=== PATIENT | male | born 1940 | race Caucasian/White ===

== ENCOUNTER 2019-09-23 19:58 | Inpatient (IN) ==
[2019-09-23] MEDS ORDERED: NS 1,000 ML IV ONE ×2 (20:16→22:09)
[2019-09-23] MEDS ORDERED: ZOFRAN IV ONE (20:16)
[2019-09-23] MEDS ORDERED: MORPHINE IV ONE (20:16)
[2019-09-23 20:36] LABS: BASO# 0.02 X1000 (0.0-0.2); BASO% 0.2 % (0.0-0.8); EOS# 0.06 X1000 (0.0-0.7); EOS% 0.5 % (0.0-10.0); HEMOGLOBIN 15.9 g/dL (14.0-18.0); IMM GRAN# 0.06 X1000 (0.0-0.04); IMM GRAN% 0.5 % (0.0-0.5); LYMPH# 1.07 X1000 (1.2-3.4); LYMPH% 8.2 % (20.5-51.1); MCH 27.2 PG (27-31); MCHC 33.8 g/dL (33-37); MCV 80.5 FL (81-99); MONO# 0.84 X1000 (0.11-0.59); MONO% 6.4 % (1.7-9.3); MPV 10.1 FL (7.4-10.4); NEUT# 11.07 X1000 (1.4-6.5); NEUT% 84.2 % (42.2-75.2); PLT 226 X1000 (130-400); RBC 5.84 XMIL (4.7-6.1); RDW 14.9 % (11.5-14.5); WBC 13.12 X1000 (4.8-10.8)
[2019-09-23 21:01] LABS: ALBUMIN 4.4 g/dL (3.5-5.0); ALKALINE PHOSPHATASE 72 U/L (32-122); CHLORIDE 97 mmol/L (98-107); CREATININE 1.1 mg/dL (0.7-1.2); ESTIMATED GFR > 60; GOT 23 U/L (10-34); GPT 22 U/L (10-44); POTASSIUM 3.5 mmol/L (3.5-5.1); SODIUM 139 mmol/L (136-145)
[2019-09-23] MEDS ORDERED: DILAUDID IV ONE (21:12)
[2019-09-23 21:22] LABS: AMYLASE 4709 U/L (20-200); BUN 15 mg/dL (8-22); CALCIUM 9.2 mg/dL (8.8-10.2); GLUCOSE 134 mg/dL (70-104); LIPASE > 3000 U/L (13-60); TCO2 27 mmol/L (25-35); TOTAL BILIRUBIN 1.53 mg/dL (0.20-1.00); TOTAL PROTEIN 7.4 g/dL (6.3-8.3)
[2019-09-23 21:30] LABS: AGAP 16
[2019-09-23 21:34] LABS: ALB/GLOB RATIO 1.5
[2019-09-23 21:36] LABS: COSMO 280
--- NOTE | 2019-09-23 22:11 | Diag Imaging Result Doc PS360 ---
CT ABD/PELVIS W/IV CONT ONLY - 09/23/2019 INDICATION: abdominal tenderness COMPARISON: None FINDINGS: The lung bases are clear and the heart size is normal. There is moderate inflammatory edema around the pancreas. The liver, gallbladder, spleen, adrenals, and kidneys are normal. No biliary dilation. No drainable fluid collections. There is severe diverticulosis of the distal colon. No bowel obstruction or inflammation. Urinary bladder, prostate, and rectum are normal. Normal appendix. There is a right hip prosthesis in good position. 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 There is moderately advanced vascular disease. There are moderate degenerative changes of the spine. No acute or suspicious bony lesion. There is severe central canal stenosis at L3-L4. IMPRESSION: Significant acute pancreatitis. No complication. This exam was performed using automated exposure control, adjustment of mA or kV according to patient size, and/or use of iterative reconstruction technique Electronically signed by Cosmo Garcia 09/23/2019 10:09 PM
[2019-09-23 22:34] LABS: URINE SOURCE CLEAN CATCH
[2019-09-23 22:40] LABS: BILIRUBIN URINE NEGATIVE (NEGATIVE); BLOOD URINE TRACE (NEGATIVE); COLOR YELLOW; GLUCOSE URINE NEGATIVE (NEGATIVE); KETONE URINE TRACE mg/dL (NEGATIVE); LEUKOCYTES URINE NEGATIVE (NEGATIVE); NITRITE URINE NEGATIVE (NEGATIVE); PH URINE 7.5; PROTEIN URINE TRACE mg/dL (NEGATIVE); SP GRAVITY URINE 1.033; TURBIDITY URINE CLEAR (CLEAR); UROBILINOGEN URINE NORMAL (NORMAL)
[2019-09-23 22:41] LABS: UR EPITHELIAL CELLS <10 /HPF (<10); URINE BACTERIA NEGATIVE /HPF; URINE RBC <10 /HPF (<10); URINE WBC <10 /HPF (<10)
--- NOTE | 2019-09-23 22:44 | PROVIDER DOCUMENTATION ---
This chart was entered by Brook Anaya Scribe, acting as scribe for Lalo Ulloa MD. HPI-Abdominal Pain/GI Problem - General Chief Complaint: Abdominal Pain Stated Complaint: PAIN IN ABDOMEN Time Seen by Provider: 09/23/19 20:15 Source: patient Allergies/Adverse Reactions: Patient Allergies Allergy/AdvReac Type Severity Reaction Status Date / Time No Known Allergies Allergy Verified 09/23/19 20:26 Home Medications: Home Medication List Medication Instructions Recorded Confirmed Last Taken Type Apixaban [Eliquis] 5 mg PO BID 09/23/19 09/23/19 Unknown History Diclofenac Sodium 1 appful TOP TID 09/23/19 09/23/19 Unknown History Losartan/Hctz [Hyzaar 100/12.5 mg 1 tab PO DAILY 09/23/19 09/23/19 Unknown History Tab] Omeprazole [Prilosec] 20 mg PO DAILY 09/23/19 09/23/19 Unknown History Potassium Chloride 20 meq PO DAILY 09/23/19 09/23/19 Unknown History Pravastatin Sodium 40 mg PO DAILY 09/23/19 09/23/19 Unknown History - History of Present Illness-ABD Nature of Presenting Problems: PT IS A 79 YOWM C/O EPIGASTRIC PAIN STARTING AT 1500. 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 PAIN IS 10/10. PT TOOK MARIA DEL CARMEN SELTZER, TUMS AND 300MG Ranitidine. PT HAS HX OF AFIB, TAKES ELAQUIS 2X DAILY. PT HAS GALL BLADDER. PT HAD ELIS SAUSAGE ON BREAD W/SWEET POTATO PIE FOR LUNCH AND CRACKERS. NO CONSTIPATION OR DIARRHEA. PT HAD NORM BM THIS AM. Abdominal Pain Onset Location: reports: epigastric Pain Radiation: reports: no radiation Severity in ED: reports: mild Onset/Duration: reports: this afternoon Timing: reports: still present Activities at Onset: reports: none Modifying Factors: improves with: nothing Associated Symptoms: reports: denies symptoms Last BM: this morning Dark Stools Present?: reports: none noticed Rectal Bleeding: reports: none Rectal Pain: reports: none Review of Systems - Adult - REVIEW OF SYSTEMS - ADULT Constitutional: reports: no symptoms reported. denies: chills, fever, fatique Eyes: reports: no symptoms reported Ears, Nose, Mouth & Throat: reports: no symptoms reported Cardiovascular: reports: no symptoms reported Respiratory: reports: no symptoms reported Gastrointestinal: reports: see HPI, abdominal pain (epigastric), vomiting (X1). denies: constipation, diarrhea, nausea Genitourinary: reports: no symptoms reported Musculoskeletal: reports: no symptoms reported Integumentary: reports: no symptoms reported Neurological: reports: no symptoms reported Psychiatric: reports: no symptoms reported Endocrine: reports: no symptoms reported Hematologic/Lymphatic: reports: no symptoms reported Allergic/Immunologic: reports: no symptoms reported All Other Systems: Reviewed and Negative Past History - Adult - PAST MEDICAL HISTORY-ADULT Review of Records: reports: Nursing Assessment Review, Medications Reviewed, Social history reviewed & non-contributory. Major Childhood Illnesses: reports: denies history Cardiovascular: reports: A-Fib Respiratory: reports: denies history Gastrointestinal: reports: denies history Obstetrical/Gynecological: reports: denies history Genitourinary: reports: denies history Musculoskeletal: reports: denies history Neurological: reports: denies history Endocrine/Immune: reports: denies history Other Conditions: reports: denies history - IMMUNIZATION STATUS Childhood Immunizations: See Nurse Assessment Flu Vaccine: See Nurse Assessment - FAMILY HISTORY Family History: reviewed, not pertinent - SOCIAL HISTORY Smoking: non-smoker Substance Use: none/never Physical Exam-General - PHYSICAL EXAM-ADULT Initial Vital Signs Reviewed: Yes - CONSTITUTIONAL General Appearance: alert, no apparent distress. negative: lethargic, slow to respond, obtunded - EYES Eyes: PERRL/EOMI, pink conjunctivae - HEAD, EARS, NOSE, MOUTH & THROAT HENMT: normocephalic/atraumatic, normal ENT inspection. negative: moist mucous membranes (dry mucous membranes) - NECK Neck: non-tender, full range of motion, supple, normal inspection - RESPIRATORY Respiratory: chest non-tender, lungs clear, normal breath sounds - CARDIOVASCULAR Cardiovascular: normal peripheral pulses, regular rate, rhythm - GASTROINTESTINAL (ABDOMEN) Abdominal Exam: normal bowel sounds, soft, no organomegaly, no pulsatile mass, tenderness (epigastric on palp). negative: non tender, abnormal bowel sounds, guarding, rigid - MUSCULOSKELETAL Back Exam: normal inspection Extremity: normal range of motion, non-tender, normal gait, normal inspection Peripheral Pulses: radial (R): 2+, radial (L): 2+ - SKIN Integumentary: normal color, normal turgor, warm/dry - NEUROLOGIC Neurologic: grossly normal, no motor/sensory deficits - PSYCHIATRIC Psych/Mental Status: normal mood/affect, normal thought content, normal thought process, oriented x 3 Progress - PLAN OF CARE/RESULTS Progress/Plan/Lab Results: Vital Signs - 8 hr 09/23/19 20:08 Temperature 98.4 F Pulse Rate 75 Respiratory Rate 20 Blood Pressure 156/92 O2 Sat by Pulse Oximetry 97 Result Diagrams: 09/23/19 20:20 09/23/19 20:20 - REASSESSMENT Reassessment #1 Time Reassessed: 22:00 Status: improving (Pain well controlled. Pt has acute pancreatitis. NPO, IVF's and admit.) - CT/MRI 1 CT Study: Abdomen, Pelvis Impression: Abnormal, See EMR Report (CT ABD/PELVIS W/IV CONT ONLY - 09/23/2019 INDICATION: abdominal tenderness COMPARISON: None FINDINGS: The lung bases are clear and the heart size is normal. There is moderate inflammatory edema around the pancreas. The liver, gallbladder, spleen, adrenals, and kidneys are normal. No biliary dilation. No drainable fluid collections. There is severe diverticulosis of the distal colon. No bowel obstruction or inflammation. Urinary bladder, prostate, and rectum are normal. Normal appendix. There is a right hip prosthesis in good position. 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 There is moderately advanced vascular disease. There are moderate degenerative changes of the spine. No acute or suspicious bony lesion. There is severe central canal stenosis at L3-L4. IMPRESSION: Significant acute pancreatitis. No complication. This exam was performed using automated exposure control, adjustment of mA or kV according to patient size, and/or use of iterative reconstruction technique Electronically signed by Cosmo Garcia 09/23/2019 10:09 PM) Comparison with other Films: no prior study - CONSULTS/PCP/HOSPITALIST Notification #1 *Consult/PCP/Hospitalist*: Dr. Pablo Time Discussed: 22:47 Consult Disposition: Admit Departure - Departure Date of Disposition Decision: 09/23/19 Time of Disposition Decision: 22:40 DIAGNOSIS: Acute pancreatitis Disposition: ADMITTED INPATIENT 09 Certified Medical Emergency: Emergent Condition: Stable Referrals and Follow-Ups: Eunice Morgan [Primary Care Provider] - - Critical Care Note This patient required my direct & personal management of CC.: No Attestation - Physician/ MELANIA Attestation Patient care was provided by Advanced Practice Provider:: No The physician spent face to face time with patient:: Yes Advanced Practice Provider documentation review:: Supervising physician onsite and consulted in the evaluation and care of this patient. The physician did have a face to face encounter with the patient. This chart was documented by the indicated scribe, (Brook Anaya Scribe) and accurately reflects the services I performed and decisions made by me, Lalo Ulloa MD, as attested by the provider's signature.
[2019-09-23] MEDS: PROTONIX IV SCH (23:08)
[2019-09-24] MEDS: DILAUDID IV PRN ×5 (02:11→22:22)
[2019-09-24] MEDS: ZOFRAN IV PRN ×6 (02:16→22:22)
[2019-09-24] MEDS ORDERED: DILAUDID IV ONE (05:21)
--- NOTE | 2019-09-24 05:56 | HISTORY AND PHYSICAL ---
CHIEF COMPLAINT: Abdominal pain which was noted prior to admission. HISTORY OF PRESENT ILLNESS: Mr. Asad Castellano is an 79-year-old male who has a history of hypertension, as well as atrial fibrillation. Comes to the hospital because of abdominal pain which is localized to the epigastric area and noticed prior to admission. He describes having vomiting, which was noted when he presented to the ER. No hematemesis. No diarrhea. The patient denies alcohol use. No history of gallbladder gallstones. On presenting to the ER, he had a CT scan of the abdomen and pelvis which shows evidence of significant acute pancreatitis. The patient's lipase level was elevated at greater than 3000 with amylase level of 4709. The patient has been admitted to the floor now for further management. PAST MEDICAL HISTORY: Atrial fibrillation, hypertension, carpal tunnel syndrome. SOCIAL HISTORY: No history of cigarette smoking. No alcohol or drug use. ALLERGIES: No known drug allergies. PAST SURGICAL HISTORY: He has had left knee surgery on 3 occasions, back surgery and right hip surgery. FAMILY HISTORY: Positive for CVA. MEDICATIONS INCLUDE THE FOLLOWIN. Apixaban 5 mg p.o. twice a day. 2. Diclofenac topical 3 times a day. 3. Losartan/hydrochlorothiazide 1 daily, 10-12.5. 4. Omeprazole 20 mg p.o. daily. 5. Potassium chloride 20 mEq p.o. daily. 6. Pravastatin 40 mg p.o. daily. REVIEW OF SYSTEMS: Constitutional: No fever. DEFENSE ANALYST: No headaches. Eyes: Uses glasses. Cardiovascular: Has no chest pain. Respiratory: No cough. : No dysuria. Psychiatric: No anxiety or depression. Endocrinology: No thyroid disease or diabetes. Hematology: Patient is on Eliquis for anticoagulation for atrial fibrillation. Musculoskeletal: He has joint pains. PHYSICAL EXAMINATION: VITAL SIGNS ARE FOLLOWS: Temperature 98.2 degrees, pulse 67, respirations 20, blood pressure is 185/64, oxygen saturation is 96%. HEENT: Atraumatic, normocephalic. He is anicteric. No oral lesions noted. NECK: No lymphadenopathy or thyromegaly. CARDIOVASCULAR: S1, S2. RESPIRATORY: Evidence of good air entry bilaterally. ABDOMEN: Soft, nontender. No masses felt. EXTREMITIES: No evidence of edema. CENTRAL NERVOUS SYSTEM: No obvious focal deficit noted. LABORATORY DATA: WBC is 13.13, hematocrit is 47 with a platelet count of 226,000. Sodium is 139, potassium 3.5, chloride 97, bicarb is 27, BUN is 15, creatinine is 1.1. Amylase 4709, lipase greater than 3000. CT scan abdomen and pelvis shows acute pancreatitis. ASSESSMENT AND PLAN: 1. Acute pancreatitis. Place patient on NPO. Maintain patient on intravenous fluids. Analgesic agent, antiemetics. Obtain abdominal ultrasound. Follow up on clinical progression. 2. Atrial fibrillation. Place patient on telemetry. Obtain serial cardiac enzymes. Check thyroid function test. Continue current regimen. 3. Hypertension. Optimize blood pressure control using oral as well as parenteral agent. 4. Deep vein thrombosis prophylaxis. The patient is on apixaban. 5. Gastrointestinal prophylaxis. Proton pump inhibitor. cc: Colton Parry MD
[2019-09-24 07:02] LABS: BASO# 0.01 X1000 (0.0-0.2); BASO% 0.1 % (0.0-0.8); EOS# 0.05 X1000 (0.0-0.7); EOS% 0.3 % (0.0-10.0); HEMATOCRIT 44.5 % (42.0-52.0); HEMOGLOBIN 14.9 g/dL (14.0-18.0); IMM GRAN# 0.05 X1000 (0.0-0.04); IMM GRAN% 0.3 % (0.0-0.5); LYMPH# 0.53 X1000 (1.2-3.4); LYMPH% 3.2 % (20.5-51.1); MCH 27.3 PG (27-31); MCHC 33.5 g/dL (33-37); MCV 81.7 FL (81-99); MONO# 0.74 X1000 (0.11-0.59); MONO% 4.4 % (1.7-9.3); MPV 10.3 FL (7.4-10.4); NEUT# 15.34 X1000 (1.4-6.5); NEUT% 91.7 % (42.2-75.2); PLT 207 X1000 (130-400); RBC 5.45 XMIL (4.7-6.1); RDW 14.9 % (11.5-14.5); WBC 16.72 X1000 (4.8-10.8)
[2019-09-24 07:23] LABS: AGAP 11; ALB/GLOB RATIO 1.4; ALBUMIN 3.8 g/dL (3.5-5.0); ALKALINE PHOSPHATASE 63 U/L (32-122); BUN 11 mg/dL (8-22); CALCIUM 8.2 mg/dL (8.8-10.2); CHLORIDE 98 mmol/L (98-107); COSMO 274; CREATININE 0.9 mg/dL (0.7-1.2); ESTIMATED GFR > 60; GLUCOSE 148 mg/dL (70-104); GOT 20 U/L (10-34); GPT 19 U/L (10-44); POTASSIUM 3.7 mmol/L (3.5-5.1); SODIUM 136 mmol/L (136-145); TCO2 27 mmol/L (25-35); TOTAL BILIRUBIN 1.73 mg/dL (0.20-1.00); TOTAL PROTEIN 6.6 g/dL (6.3-8.3)
[2019-09-24 07:32] LABS: LIPASE 1710 U/L (13-60)
[2019-09-24 07:39] LABS: SEGS 100 % (42-75)
[2019-09-24] MEDS ORDERED: PATIENT'S OWN MED PO SCH (09:00)
[2019-09-24] MEDS: NS 1,000 ML IV SCH ×3 (09:43→22:27)
[2019-09-24] MEDS: PRAVACHOL PO SCH ×3 (09:44→22:23)
[2019-09-24] MEDS: ELIQUIS PO SCH ×2 (09:44→22:23)
--- NOTE | 2019-09-24 09:44 | Diag Imaging Result Doc PS360 ---
US ABDOMEN-COMPLETE - 09/24/2019 INDICATION: acute pancreatitis COMPARISON: CT from 09/23/2019 FINDINGS: The liver, gallbladder, spleen, pancreas, and both kidneys are normal. Common bile duct measures 3 mm. Spleen size is 9 x 2.3 cm. No drainable fluid collections. Aorta, IVC, and main portal vein are patent. IMPRESSION: Negative exam. Electronically signed by Cosmo Garcia 09/24/2019 9:42 AM
--- NOTE | 2019-09-24 10:33 | PROGRESS NOTE ---
DATE: 09/24/2019 SUBJECTIVE: The patient continues to have abdominal pain in the epigastric area, but better in comparing with yesterday. OBJECTIVE: Vital Signs: Temperature 98.1 degrees, heart rate 65, respiratory rate 16, blood pressure 175/75, O2 saturation 96% on room air. General: This is a 79-year-old, male, lying in bed in no acute distress. Cardiovascular: S1, S2 heard. No murmurs, gallops, or rubs. Regular rate and rhythm. Respiratory: Clear bilaterally to auscultation. No work of breathing or using accessory muscles. Abdomen: Soft. Tender to palpation in the epigastric area. No signs of peritoneal irritation. Extremities: No clubbing, cyanosis, or edema. Peripheral pulses present in both legs. Neurological: The patient is alert and oriented x3. Moves all 4 extremities. LABORATORY DATA: Reviewed. IMAGING: Abdominal ultrasound has been done, but has not been read yet. ASSESSMENT AND PLAN: 1. Acute pancreatitis. The patient is on intravenous fluids and Dilaudid for pain and nothing by mouth. Abdominal ultrasound is pending. 2. Atrial fibrillation. I am not quite sure if this is a new condition or not. It has been documented that he has chronic atrial fibrillation, so at this point, will continue with chronic medications. He is on Eliquis. 3. Hypertension. Blood pressure is a little bit elevated, I think because of the pain. Will adjust antihypertensive medication as needed. cc: Dm Miller MD
[2019-09-24] MEDS: HYZAAR 100/12.5 MG TAB PO SCH (11:15)
[2019-09-24] MEDS: SODIUM CHLORIDE 0.9% INJ SCH (22:22)
[2019-09-24] MEDS: PROTONIX IV SCH (22:22)
[2019-09-25] MEDS: ZOFRAN IV PRN ×6 (04:37→22:31)
[2019-09-25] MEDS: DILAUDID IV PRN ×6 (04:37→22:31)
[2019-09-25] MEDS: NS 1,000 ML IV SCH ×4 (07:37→19:33)
--- NOTE | 2019-09-25 07:41 | EKG Report ---
Test Performed on : 09/23/2019 8:17:10 PM Test Reason : ED. NO EKG ORDER FOR MUSE Blood Pressure : / mmHG Vent. Rate : 054 BPM Atrial Rate : 054 BPM P-R Int : 290 ms QRS Dur : 140 ms QT Int : 482 ms P-R-T Axes : 064 015 017 degrees QTc Int : 457 ms Sinus bradycardia. with sinus arrhythmia. with 1st degree AV block. Right bundle branch block Abnormal ECG No previous ECGs available Unconfirmed Result
[2019-09-25] MEDS: ELIQUIS PO SCH ×3 (10:46→20:04)
[2019-09-25] MEDS: HYZAAR 100/12.5 MG TAB PO SCH (10:46)
[2019-09-25] MEDS ORDERED: BLISTEX MEDICATED BERRY LIP BALM TOP PRN (12:52)
[2019-09-25 14:24] LABS: BASO# 0.03 X1000 (0.0-0.2); BASO% 0.1 % (0.0-0.8); EOS# 0.02 X1000 (0.0-0.7); EOS% 0.1 % (0.0-10.0); HEMATOCRIT 44.9 % (42.0-52.0); HEMOGLOBIN 14.7 g/dL (14.0-18.0); IMM GRAN# 0.07 X1000 (0.0-0.04); IMM GRAN% 0.3 % (0.0-0.5); LYMPH# 0.71 X1000 (1.2-3.4); MCH 27.1 PG (27-31); MCHC 32.7 g/dL (33-37); MCV 82.8 FL (81-99); MONO# 1.08 X1000 (0.11-0.59); MONO% 4.5 % (1.7-9.3); MPV 10.4 FL (7.4-10.4); NEUT# 22.05 X1000 (1.4-6.5); PLT 197 X1000 (130-400); RBC 5.42 XMIL (4.7-6.1); RDW 15.6 % (11.5-14.5); WBC 23.96 X1000 (4.8-10.8)
[2019-09-25 14:33] LABS: ANISOCYTOSIS 1+; HYPOCHROM 2+; LYMPHS 3 % (21-51); MICROCYTOSIS 1+; MONO 5 % (1-9); SEGS 92 % (42-75)
[2019-09-25 14:39] LABS: AGAP 12; BUN 13 mg/dL (8-22); CALCIUM 8.1 mg/dL (8.8-10.2); CHLORIDE 100 mmol/L (98-107); COSMO 274; ESTIMATED GFR > 60; GLUCOSE 71 mg/dL (70-104); POTASSIUM 3.3 mmol/L (3.5-5.1); SODIUM 138 mmol/L (136-145); TCO2 26 mmol/L (25-35)
--- NOTE | 2019-09-25 14:43 | PROGRESS NOTE ---
DATE: 09/25/2019 SUBJECTIVE: Patient reports he is still complaining of abdominal pain in the epigastric area. Reports a poor appetite. OBJECTIVE: Vital Signs: Temperature 98.7 degrees, heart rate 83, respiratory rate 16, blood pressure 152/70, O2 saturation 96% on room air. General Examination: This is a 79-year-old, male, lying in bed, in no acute distress. Cardiovascular Examination: S1 and S2 heard. No murmurs, gallops, or rubs. Regular rate and rhythm. Respiratory Examination: Clear bilaterally to auscultation. No work of breathing. No use of accessory muscles. Abdomen: Soft, nontender to palpation. Bowel sounds present. No organomegaly. Extremities: No clubbing, cyanosis, or edema. Peripheral pulses present in both legs. Neurological Examination: The patient is alert and oriented x3. Moves 4 extremities. Laboratory Data: No labs from today. ASSESSMENT AND PLAN: 1. Acute pancreatitis of unknown source. The abdominal ultrasound did not reveal any gallstones. Actually, it is completely normal. At this point, we will continue with intravenous fluids and intravenous pain medication. 2. Atrial fibrillation. We will continue with current medications including Eliquis. 3. Hypertension. Blood pressure is under control. We will continue with the same management. 4. Disposition. We will continue to monitor this patient closely. We will allow the patient to have ice chips. cc: Dm Miller MD
[2019-09-25] MEDS: PRAVACHOL PO SCH ×2 (19:51→20:04)
[2019-09-25] MEDS: PROTONIX IV SCH (19:51)
[2019-09-26] MEDS: PROTONIX IV SCH ×2 (01:21→20:25)
[2019-09-26] MEDS: DILAUDID IV PRN ×7 (01:41→20:53)
[2019-09-26] MEDS: ZOFRAN IV PRN ×7 (01:41→20:53)
[2019-09-26 06:47] LABS: BASO# 0.02 X1000 (0.0-0.2); BASO% 0.1 % (0.0-0.8); EOS# 0.05 X1000 (0.0-0.7); EOS% 0.2 % (0.0-10.0); HEMATOCRIT 43.6 % (42.0-52.0); HEMOGLOBIN 14.3 g/dL (14.0-18.0); IMM GRAN# 0.08 X1000 (0.0-0.04); IMM GRAN% 0.3 % (0.0-0.5); LYMPH# 0.82 X1000 (1.2-3.4); LYMPH% 3.2 % (20.5-51.1); MCH 27.1 PG (27-31); MCHC 32.8 g/dL (33-37); MCV 82.7 FL (81-99); MONO# 1.39 X1000 (0.11-0.59); MONO% 5.5 % (1.7-9.3); MPV 10.6 FL (7.4-10.4); NEUT# 22.91 X1000 (1.4-6.5); NEUT% 90.7 % (42.2-75.2); PLT 184 X1000 (130-400); RBC 5.27 XMIL (4.7-6.1); RDW 15.3 % (11.5-14.5); WBC 25.27 X1000 (4.8-10.8)
[2019-09-26 07:14] LABS: AGAP 12; BUN 13 mg/dL (8-22); CHLORIDE 96 mmol/L (98-107); COSMO 266; CREATININE 0.8 mg/dL (0.7-1.2); ESTIMATED GFR > 60; GLUCOSE 81 mg/dL (70-104); POTASSIUM 3.1 mmol/L (3.5-5.1); SODIUM 133 mmol/L (136-145); TCO2 25 mmol/L (25-35)
[2019-09-26] MEDS: ELIQUIS PO SCH ×2 (09:48→20:24)
[2019-09-26] MEDS: HYZAAR 100/12.5 MG TAB PO SCH (09:48)
[2019-09-26] MEDS ORDERED: POTASSIUM CHLORIDE 60 MEQ in NS 500 ML IV ONE (11:54)
[2019-09-26] MEDS ORDERED: ZOSYN 3.375 GM in NS 50 ML IV SCH (12:00)
--- NOTE | 2019-09-26 13:01 | Diag Imaging Result Doc PS360 ---
EXAM: ABDOMEN FLAT/UPRIGHT 09/26/2019 HISTORY: pain TECHNIQUE: Flat and upright abdomen COMMENT: There is a large amount of stool present in the right colon with gas and some fecal debris seen elsewhere in the colon. The small bowel and stomach are not distended. There is no evidence of organomegaly or mass. Compared to 09/28/2011 the appearance of the abdomen is somewhat similar with regard to the amount of stool in the colon. IMPRESSION: Constipation. Electronically signed by Cornelius Moseley 09/26/2019 12:59 PM
[2019-09-26] MEDS: MERREM 1 GM in NS 50 ML IV SCH ×2 (13:40→20:23)
[2019-09-26] MEDS: NS 1,000 ML IV SCH ×3 (13:50→17:53)
--- NOTE | 2019-09-26 13:57 | PROGRESS NOTE ---
DATE: 09/26/2019 SUBJECTIVE: Patient reports abdominal pain is getting worse and his abdomen is more distended. Denies any fever. OBJECTIVE: Vital Signs: Temperature 98.6 degrees, heart rate 98, respiratory 16, blood pressure 171/96, O2 saturation 94% on 2 L nasal cannula. General: This is a 79-year-old male, lying in bed, in no acute distress. Cardiovascular: S1, S2 heard. No murmurs, gallops, or rubs. Regular rate and rhythm. Respiratory: Clear bilaterally to auscultation. No work of breathing or using accessory muscles. Abdomen: Soft definitely more distended in comparing with yesterday. Bowel sounds present. No organomegaly. No signs of peritoneal irritation. Extremities: No clubbing, cyanosis, or edema. Peripheral pulses present in both legs. Neurological: Patient alert and oriented x3. Moves 4 extremities. LABORATORY DATA: White cell count 25.27 with normal hemoglobin. Sodium 133, potassium 3.1. ASSESSMENT AND PLAN: 1. Acute pancreatitis. Clinically this patient is not doing good. His abdominal pain is getting worse. His white cell count continues to get worse so I am suspecting now that he may have infected pancreatitis. So in that regard, I am going to increase the doses of Dilaudid from 1 to 2 mg every 3 hours. Also, we will add meropenem 1 g IV q.8 hours to his current treatment. We will continue with IV fluids. I am going to check abdominal x-ray to see if there is any ileus. We will continue to monitor this patient closely. 2. Atrial fibrillation. Rate is well controlled. We will continue with Eliquis. 3. Hypertension. Blood pressure is elevated because of the severe pain. At this point, we will continue with the same management. 4. Disposition. We will continue to monitor this patient closely. We will start antibiotics and we will do an abdominal x-ray. cc: Dm Millre MD
[2019-09-26] MEDS: PRAVACHOL PO SCH (20:24)
[2019-09-26] MEDS: LABETALOL IV PRN (20:25)
[2019-09-27] MEDS: ZOFRAN IV PRN ×6 (00:25→21:25)
[2019-09-27] MEDS: DILAUDID IV PRN ×6 (00:26→21:25)
[2019-09-27] MEDS: NS 1,000 ML IV SCH ×2 (03:26→12:13)
[2019-09-27] MEDS: MERREM 1 GM in NS 50 ML IV SCH ×3 (03:26→21:26)
[2019-09-27] MEDS: LABETALOL IV PRN (05:08)
[2019-09-27 06:34] LABS: URINE SOURCE CATH
[2019-09-27 06:37] LABS: BILIRUBIN URINE NEGATIVE (NEGATIVE); BLOOD URINE LARGE (NEGATIVE); COLOR YELLOW; GLUCOSE URINE NEGATIVE (NEGATIVE); KETONE URINE 20 mg/dL (NEGATIVE); LEUKOCYTES URINE NEGATIVE (NEGATIVE); NITRITE URINE NEGATIVE (NEGATIVE); PROTEIN URINE 100 mg/dL (NEGATIVE); SP GRAVITY URINE 1.021; TURBIDITY URINE CLEAR (CLEAR); UROBILINOGEN URINE 2 mg/dL (NORMAL)
[2019-09-27 06:39] LABS: UR EPITHELIAL CELLS <10 /HPF (<10); URINE BACTERIA NEGATIVE /HPF; URINE RBC 20-40 /HPF (<10); URINE WBC <10 /HPF (<10)
[2019-09-27 07:05] LABS: BASO# 0.02 X1000 (0.0-0.2); BASO% 0.1 % (0.0-0.8); EOS# 0.13 X1000 (0.0-0.7); EOS% 0.6 % (0.0-10.0); HEMATOCRIT 40.4 % (42.0-52.0); HEMOGLOBIN 13.6 g/dL (14.0-18.0); IMM GRAN# 0.06 X1000 (0.0-0.04); IMM GRAN% 0.3 % (0.0-0.5); LYMPH# 0.58 X1000 (1.2-3.4); LYMPH% 2.8 % (20.5-51.1); MCH 27.8 PG (27-31); MCHC 33.7 g/dL (33-37); MCV 82.6 FL (81-99); MONO# 1.22 X1000 (0.11-0.59); MPV 10.9 FL (7.4-10.4); NEUT# 18.47 X1000 (1.4-6.5); NEUT% 90.2 % (42.2-75.2); PLT 204 X1000 (130-400); RBC 4.89 XMIL (4.7-6.1); RDW 15.3 % (11.5-14.5); WBC 20.48 X1000 (4.8-10.8)
[2019-09-27 07:19] LABS: AGAP 12; BUN 13 mg/dL (8-22); CALCIUM 7.8 mg/dL (8.8-10.2); CHLORIDE 97 mmol/L (98-107); COSMO 268; CREATININE 0.8 mg/dL (0.7-1.2); ESTIMATED GFR > 60; GLUCOSE 98 mg/dL (70-104); POTASSIUM 3.3 mmol/L (3.5-5.1); SODIUM 134 mmol/L (136-145); TCO2 25 mmol/L (25-35)
[2019-09-27 07:34] LABS: ANISOCYTOSIS OCCASIONAL; EOS 2 % (1-10); LYMPHS 3 % (21-51); MONO 5 % (1-9); SEGS 90 % (42-75)
[2019-09-27] MEDS: ELIQUIS PO SCH ×2 (08:36→21:26)
[2019-09-27] MEDS: HYZAAR 100/12.5 MG TAB PO SCH (08:36)
[2019-09-27] MEDS ORDERED: KLOR-CON PO ONE (11:05)
[2019-09-27] MEDS: NORVASC PO SCH ×2 (12:05→21:26)
--- NOTE | 2019-09-27 12:19 | PROGRESS NOTE ---
DATE: 09/27/2019 SUBJECTIVE: The patient reports feeling better. Pain is under control. Abdominal distention is better. OBJECTIVE: Vital Signs: Temperature 97.8, heart rate 69, respiratory rate 16, blood pressure 158/92, O2 saturation 95% on room air. General: This is a 79-year-old, male, lying in bed in no acute distress. Cardiovascular: S1, S2 heard. No murmurs, gallops, or rubs. Regular rate and rhythm. Respiratory: Clear bilaterally to auscultation. No work of breathing or using accessory muscles. Abdomen: Soft. Definitely less distended in comparing with yesterday. Bowel sounds present. No organomegaly. No signs of peritoneal irritation. Extremities: No clubbing, cyanosis, or edema. Peripheral pulses present in both legs. Neurological: The patient is alert and oriented x3. Moves all 4 extremities. LABORATORY DATA: White cell count 20.48, hemoglobin 13.6, hematocrit 40.4, platelets 204,000. Creatinine normal, and potassium 3.3. ASSESSMENT AND PLAN: 1. Acute pancreatitis. Clinically, this patient is better. We are controlling her abdominal pain better. White cell count is getting better. We have started meropenem yesterday for suspicious infected pancreatitis. I think the patient is getting better overall. Will start clear liquid diet today, and see if he tolerates or not. Abdominal x-ray just shows some constipation. Now that this patient is going to have clear liquid diet, will provide MiraLAX because his Dilaudid will make him prone to be more constipated. 2. Atrial fibrillation. Heart rate is well controlled. Will continue with Eliquis. 3. Hypertension. Blood pressure has been high, so at this point, we have started him on amlodipine 5 mg by mouth every 12 hours. 4. Disposition. Will continue to monitor this patient closely. cc: Dm Miller MD
[2019-09-27] MEDS: PRAVACHOL PO SCH (21:26)
[2019-09-28] MEDS: PROTONIX IV SCH ×3 (00:23→22:26)
[2019-09-28] MEDS: SODIUM CHLORIDE 0.9% INJ SCH ×2 (00:25→22:26)
[2019-09-28] MEDS: ZOFRAN IV PRN ×5 (02:34→22:26)
[2019-09-28] MEDS: DILAUDID IV PRN ×5 (02:34→22:26)
[2019-09-28] MEDS: NS 1,000 ML IV SCH ×3 (02:40→11:19)
[2019-09-28] MEDS: MERREM 1 GM in NS 50 ML IV SCH ×3 (05:32→19:58)
[2019-09-28 07:01] LABS: BASO# 0.03 X1000 (0.0-0.2); BASO% 0.2 % (0.0-0.8); EOS# 0.33 X1000 (0.0-0.7); EOS% 1.8 % (0.0-10.0); HEMATOCRIT 41.8 % (42.0-52.0); HEMOGLOBIN 13.9 g/dL (14.0-18.0); IMM GRAN# 0.09 X1000 (0.0-0.04); IMM GRAN% 0.5 % (0.0-0.5); LYMPH# 0.89 X1000 (1.2-3.4); LYMPH% 4.9 % (20.5-51.1); MCH 27.1 PG (27-31); MCHC 33.3 g/dL (33-37); MCV 81.5 FL (81-99); MONO# 1.35 X1000 (0.11-0.59); MONO% 7.5 % (1.7-9.3); MPV 10.5 FL (7.4-10.4); NEUT# 15.42 X1000 (1.4-6.5); NEUT% 85.1 % (42.2-75.2); PLT 246 X1000 (130-400); RBC 5.13 XMIL (4.7-6.1); RDW 15.1 % (11.5-14.5); WBC 18.11 X1000 (4.8-10.8)
[2019-09-28 07:25] LABS: AGAP 14; BUN 12 mg/dL (8-22); CALCIUM 8.3 mg/dL (8.8-10.2); CHLORIDE 96 mmol/L (98-107); COSMO 269; CREATININE 0.8 mg/dL (0.7-1.2); ESTIMATED GFR > 60; GLUCOSE 91 mg/dL (70-104); POTASSIUM 3.6 mmol/L (3.5-5.1); SODIUM 135 mmol/L (136-145); TCO2 25 mmol/L (25-35)
[2019-09-28] MEDS: ELIQUIS PO SCH ×2 (08:25→22:26)
[2019-09-28] MEDS: NORVASC PO SCH ×2 (08:25→22:27)
[2019-09-28] MEDS: MIRALAX PO SCH ×2 (14:50→22:26)
--- NOTE | 2019-09-28 14:54 | PROGRESS NOTE ---
DATE: 09/28/2019 SUBJECTIVE: Patient reports abdominal pain is better controlled. He noted that he is not requiring medications every 3 hours for pain. Also, he was able to tolerate a clear liquid diet. OBJECTIVE: Vital Signs: Temperature 98.4 degrees, heart rate 96, respiratory rate 16, blood pressure 143/96. O2 saturation 92% on room air. General: This is a 79-year-old male lying in bed in no acute distress. Cardiovascular: S1, S2 heard. No murmurs, gallops, or rubs. Regular rate and rhythm. Respiratory: Clear bilaterally to auscultation. No work of breathing or using accessory muscles. Abdomen: Soft. Definitely less distended. Less tender to palpation. Bowel sounds present. No organomegaly. No signs of peritoneal irritation. Extremities: No clubbing, cyanosis, or edema. Peripheral pulses present in both legs. Neurological: Patient alert oriented x3. Moves 4 extremities. LABORATORY DATA: White cell count in his 18.11 with hemoglobin 13.9. BMP unremarkable. ASSESSMENT AND PLAN: 1. Acute pancreatitis. Clinically, this patient continues to improve. White cell count continues to improve as well after we start meropenem on this patient. He has tolerated a clear liquid diet today, and he is requiring less IV pain medications today. As of now, I think this patient is improving. What I am going to do is to continue with the current management. If tomorrow, he continues to improve clinically, will change his diet to GI soft. We will change pain medications to p.o. and see how he does. 2. Atrial fibrillation. Heart rate is well controlled. We will continue with Eliquis. 3. Hypertension. Blood pressure has been a little bit high, but after we start amlodipine on this patient his blood pressure has been much better. We will continue with the same management. 4. Disposition: We will continue to monitor this patient closely. Most likely, he will need to spend the week here. cc: Dm Miller MD
[2019-09-28] MEDS: PRAVACHOL PO SCH (22:27)
[2019-09-29] MEDS: DILAUDID IV PRN ×2 (04:25→08:17)
[2019-09-29] MEDS: MERREM 1 GM in NS 50 ML IV SCH ×3 (04:25→23:19)
[2019-09-29] MEDS: ZOFRAN IV PRN ×2 (04:25→08:16)
[2019-09-29 07:04] LABS: BASO# 0.03 X1000 (0.0-0.2); BASO% 0.2 % (0.0-0.8); EOS# 0.33 X1000 (0.0-0.7); EOS% 1.9 % (0.0-10.0); HEMATOCRIT 41.9 % (42.0-52.0); HEMOGLOBIN 14.1 g/dL (14.0-18.0); IMM GRAN# 0.12 X1000 (0.0-0.04); IMM GRAN% 0.7 % (0.0-0.5); LYMPH# 0.98 X1000 (1.2-3.4); LYMPH% 5.7 % (20.5-51.1); MCH 27.2 PG (27-31); MCHC 33.7 g/dL (33-37); MCV 80.9 FL (81-99); MONO% 7.5 % (1.7-9.3); MPV 10.1 FL (7.4-10.4); NEUT# 14.53 X1000 (1.4-6.5); PLT 247 X1000 (130-400); RBC 5.18 XMIL (4.7-6.1); WBC 17.29 X1000 (4.8-10.8)
[2019-09-29 07:16] LABS: AGAP 13; BUN 8 mg/dL (8-22); CHLORIDE 95 mmol/L (98-107); COSMO 266; CREATININE 0.6 mg/dL (0.7-1.2); ESTIMATED GFR > 60; GLUCOSE 117 mg/dL (70-104); POTASSIUM 3.1 mmol/L (3.5-5.1); SODIUM 133 mmol/L (136-145); TCO2 25 mmol/L (25-35)
[2019-09-29 07:27] LABS: BANDS 8 % (0-1); LYMPHS 4 % (21-51); MONO 6 % (1-9); SEGS 82 % (42-75)
[2019-09-29] MEDS: ELIQUIS PO SCH ×2 (08:16→23:20)
[2019-09-29] MEDS: MIRALAX PO SCH ×2 (08:16→23:19)
[2019-09-29] MEDS: NORVASC PO SCH ×2 (08:16→23:20)
[2019-09-29] MEDS: NS 1,000 ML IV SCH (09:00)
[2019-09-29] MEDS ORDERED: POTASSIUM CHLORIDE 60 MEQ in NS 500 ML IV ONE (11:39)
[2019-09-29] MEDS ORDERED: NORCO-7.5 PO PRN (13:02)
[2019-09-29] MEDS ORDERED: DILAUDID IV PRN (13:03)
[2019-09-29] MEDS ORDERED: LASIX IV ONE (13:10)
--- NOTE | 2019-09-29 13:57 | PROGRESS NOTE ---
DATE: 09/29/2019 SUBJECTIVE: The patient reports that abdominal pain is much better controlled. He according to him requires less pain medication. He has been tolerating a clear liquid diet very well. He reports he is kind of a little bit short of breath. He thinks that he is congested. No other issues noted. OBJECTIVE: Vital Signs: Temperature 99.7 degrees, heart rate 95, respiratory rate 18, blood pressure 140/96. O2 saturation 96% on room air. General examination: This is a 79-year-old male, lying in bed in no acute distress. Cardiovascular exam: S1, S2 heard. No murmurs, gallops, or rubs. Regular rate and rhythm. Respiratory exam: Minimal crackles noted in both pulmonary bases. The patient is not using any accessory muscles or having work of breathing. Abdomen: Soft. Less distended. Mildly tender to palpation in the epigastric area. No signs of peritoneal irritation. Extremities: No clubbing, cyanosis or edema. Peripheral pulses present in both legs. Neurological exam: Patient is alert and oriented x3. Moves 4 extremities. LABORATORY DATA: White cell count 17.29, hemoglobin 14.1, hematocrit 41.9 platelets 247. Potassium is 3.1. ASSESSMENT AND PLAN: 1. Acute pancreatitis. Clinically this patient continues to improve. There is actually infected pancreatitis, and he is receiving meropenem 1 gram intravenous every 8 hours. His white cell count is 7,000 today and yesterday was 18. At this point, we will advance his diet to gastrointestinal soft diet. We are going to start oral pain medications, in this case [place] 7.5 mg one tablet oral every 4 hours as needed for pain. We will leave Dilaudid, but will reduce the doses to 1 mg intravenous every 3 hours as needed. We will see how this patient does. 2. Volume overload. Patient has been receiving plenty of fluids here. On physical examination disclosed some crackles, so at this point we will provide one dose of Lasix 60 mg intravenous, and will check an x-ray tomorrow morning. 3. Atrial fibrillation. Heart rate continues to be well controlled. We will continue with Eliquis. 4. Hypertension. The patient has been on losartan hydrochlorothiazide at home. The patient's family expressed his concern about any possibility of this losartan to be related to acute pancreatitis, so at this point patient has been started on amlodipine 5 mg oral twice daily and labetalol as needed. We will continue to monitor this patient closely. 5. Benign prostatic hypertrophy. Patient is going to be started on tamsulosin 0.4 mg one tablet oral twice daily. cc: Dm Miller MD
[2019-09-29] MEDS: SODIUM CHLORIDE 0.9% INJ SCH (23:20)
[2019-09-29] MEDS: PROTONIX IV SCH (23:20)
[2019-09-29] MEDS: PRAVACHOL PO SCH (23:20)
[2019-09-29] MEDS: FLOMAX PO SCH (23:21)
[2019-09-30] MEDS: NS 1,000 ML IV SCH ×4 (01:08→20:48)
[2019-09-30 01:23] LABS: BASO# 0.05 X1000 (0.0-0.2); BASO% 0.3 % (0.0-0.8); EOS# 0.24 X1000 (0.0-0.7); EOS% 1.5 % (0.0-10.0); HEMATOCRIT 41.9 % (42.0-52.0); HEMOGLOBIN 14.3 g/dL (14.0-18.0); IMM GRAN# 0.16 X1000 (0.0-0.04); LYMPH# 0.99 X1000 (1.2-3.4); LYMPH% 6.3 % (20.5-51.1); MCH 27.4 PG (27-31); MCHC 34.1 g/dL (33-37); MCV 80.3 FL (81-99); MONO# 1.59 X1000 (0.11-0.59); MPV 9.8 FL (7.4-10.4); NEUT# 12.81 X1000 (1.4-6.5); NEUT% 80.9 % (42.2-75.2); PLT 288 X1000 (130-400); RBC 5.22 XMIL (4.7-6.1); RDW 15.1 % (11.5-14.5); WBC 15.84 X1000 (4.8-10.8)
[2019-09-30 01:39] LABS: INR 1.59; PROTIME 19.3 Seconds (11.0-16.0)
[2019-09-30 01:41] LABS: PTT 44.2 Seconds (22.3-41.8)
[2019-09-30 01:51] LABS: AGAP 14; ALB/GLOB RATIO 0.9; ALBUMIN 3.2 g/dL (3.5-5.0); ALKALINE PHOSPHATASE 114 U/L (32-122); BUN 8 mg/dL (8-22); CALCIUM 8.2 mg/dL (8.8-10.2); CHLORIDE 92 mmol/L (98-107); CK PROFILE 175 U/L (24-204); COSMO 267; CREATININE 0.8 mg/dL (0.7-1.2); ESTIMATED GFR > 60; GLUCOSE 109 mg/dL (70-104); GOT 85 U/L (10-34); GPT 71 U/L (10-44); POTASSIUM 3.1 mmol/L (3.5-5.1); SODIUM 134 mmol/L (136-145); TCO2 28 mmol/L (25-35); TOTAL BILIRUBIN 5.04 mg/dL (0.20-1.00); TOTAL PROTEIN 6.8 g/dL (6.3-8.3)
[2019-09-30 01:56] LABS: URINE SOURCE CATH
[2019-09-30 02:00] LABS: BILIRUBIN URINE SMALL (NEGATIVE); BLOOD URINE MODERATE (NEGATIVE); COLOR YELLOW; GLUCOSE URINE NEGATIVE (NEGATIVE); KETONE URINE 10 mg/dL (NEGATIVE); LEUKOCYTES URINE NEGATIVE (NEGATIVE); NITRITE URINE NEGATIVE (NEGATIVE); PH URINE 7.5; PROTEIN URINE 70 mg/dL (NEGATIVE); SP GRAVITY URINE 1.016; TURBIDITY URINE HAZY (CLEAR); UROBILINOGEN URINE 4 mg/dL (NORMAL)
[2019-09-30 02:08] LABS: UR EPITHELIAL CELLS <10 /HPF (<10); URINE BACTERIA NEGATIVE /HPF; URINE WBC <10 /HPF (<10)
[2019-09-30 02:30] LABS: URINE CASTS NONE SEEN; URINE CRYSTALS NONE SEEN; URINE SMALL ROUND CELLS NONE SEEN; URINE YEAST NONE SEEN
--- NOTE | 2019-09-30 03:32 | EKG Report ---
Test Performed on : 09/30/2019 00:36:59 AM Test Reason : sepsis protocol Blood Pressure : / mmHG Vent. Rate : 097 BPM Atrial Rate : 097 BPM P-R Int : 218 ms QRS Dur : 132 ms QT Int : 390 ms P-R-T Axes : 096 -03 003 degrees QTc Int : 495 ms Sinus rhythm. with 1st degree AV block. with premature supraventricular complexes. and with occasiona l premature ventricular complexes. Right bundle branch block Abnormal ECG When compared with ECG of 23-SEP-2019 20:17, (Unconfirmed) premature ventricular complexes. are now present premature supraventricular complexes. are now present Vent. rate has increased BY 43 BPM Confirmed by Gregor ARAUJO, Chadwick Biggs ([id number]) on 10/02/2019 9:28:00 AM
[2019-09-30 07:16] LABS: BASO# 0.02 X1000 (0.0-0.2); BASO% 0.1 % (0.0-0.8); EOS# 0.31 X1000 (0.0-0.7); EOS% 2.3 % (0.0-10.0); HEMOGLOBIN 13.7 g/dL (14.0-18.0); IMM GRAN# 0.13 X1000 (0.0-0.04); LYMPH# 0.95 X1000 (1.2-3.4); MCH 27.1 PG (27-31); MCHC 33.4 g/dL (33-37); MCV 81.2 FL (81-99); MONO# 1.33 X1000 (0.11-0.59); MONO% 9.8 % (1.7-9.3); MPV 10.1 FL (7.4-10.4); NEUT# 10.83 X1000 (1.4-6.5); NEUT% 79.8 % (42.2-75.2); PLT 269 X1000 (130-400); RBC 5.05 XMIL (4.7-6.1); RDW 15.1 % (11.5-14.5); WBC 13.57 X1000 (4.8-10.8)
[2019-09-30 07:22] LABS: AGAP 11; BUN 9 mg/dL (8-22); CALCIUM 8.3 mg/dL (8.8-10.2); CHLORIDE 95 mmol/L (98-107); COSMO 272; CREATININE 0.8 mg/dL (0.7-1.2); ESTIMATED GFR > 60; GLUCOSE 121 mg/dL (70-104); SODIUM 136 mmol/L (136-145); TCO2 30 mmol/L (25-35)
--- NOTE | 2019-09-30 07:54 | Diag Imaging Result Doc PS360 ---
EXAM: CHEST-1 VIEW 09/30/2019 HISTORY: sepsis protocol TECHNIQUE: AP portable at 0057 COMMENT: There are ill-defined opacities in the left base which are worse than on 09/28/2011. The heart size and pulmonary vascularity are within normal limits. IMPRESSION: Atelectasis versus pneumonia left lower lobe. Electronically signed by Cornelius Moseley 09/30/2019 7:52 AM
[2019-09-30] MEDS: FLOMAX PO SCH ×2 (08:53→20:45)
[2019-09-30] MEDS: NORVASC PO SCH ×2 (08:53→20:45)
[2019-09-30] MEDS: ELIQUIS PO SCH ×2 (08:53→20:45)
[2019-09-30] MEDS: MIRALAX PO SCH ×2 (08:54→21:10)
[2019-09-30] MEDS: MERREM 1 GM in NS 50 ML IV SCH ×2 (08:54→17:04)
[2019-09-30] MEDS ORDERED: ZITHROMAX 500 MG/NS 500 MG/250 ML IVPB IV SCH (12:00)
[2019-09-30] MEDS: KLOR-CON PO SCH ×2 (12:09→20:45)
--- NOTE | 2019-09-30 13:58 | PROGRESS NOTE ---
DATE: 09/30/2019 SUBJECTIVE: Patient reports that abdominal pain continues to be much better controlled. OBJECTIVE: Vitals: Temperature 97.8 degrees, heart rate 89, respiratory rate 20, blood pressure 152/69, O2 saturation 99% 2 L nasal cannula. General: This is a 79-year-old male lying in bed in no acute distress. Cardiovascular: S1, S2 heard. No murmurs, gallops, or rubs. Regular rate and rhythm. Respiratory: Minimal coarse breath sounds noted in both pulmonary bases, patient not using any accessory muscles or having work of breathing. Abdomen is soft, less distended, very mild tenderness to palpation in the epigastric area much better in compared with admission, no signs of peritoneal irritation. Bowel sounds present. No organomegaly. Extremities: No clubbing, cyanosis or edema. Peripheral pulses present in both legs. Neurological: The patient is alert and oriented x3, moves 4 extremities. LABORATORY DATA: White cell count 13.57, hemoglobin 13.7, hematocrit 41.0, platelets 269,000 with INR 1.59, potassium 3.1 and calcium 8.2, normal renal function. ASSESSMENT AND PLAN: 1. Acute pancreatitis. Clinically this patient continues to improve, patient is eating gastrointestinal soft diet, he is receiving home Rydal by mouth for pain. I think this patient is doing much better. Will continue with the same management. 2. Left lower lobe pneumonia. That is what we found out yesterday, he was complaining of some shortness of breath. Currently he is receiving meropenem and will add azithromycin to his current treatment. 3. Volume overload. X-ray did not show any signs of pulmonary edema. 4. Atrial fibrillation, heart rate is well controlled, will continue with Eliquis. 5. Hypertension. Blood pressure is under control, he has been on losartan hydrochlorothiazide but we have changed to amlodipine 5 mg p.o. b.i.d. because of possible concern for pancreatitis related to losartan. In any case will continue to monitor. 6. Benign prostatic hypertrophy. Will continue with tamsulosin 0.4 mg 1 tablet p.o. b.i.d. 7. Disposition. I think at this point patient is doing tremendously better. If he eats regular diet today I think we can discharge home with pain medication. cc: Dm Miller MD
--- NOTE | 2019-09-30 14:22 | Diag Imaging Result Doc PS360 ---
EXAM: CHEST-2 VIEWS 09/30/2019 HISTORY: pulm edema TECHNIQUE: PA and lateral chest COMMENT: The inspiration is better than on the previous study of 09/30/2019 at 1257. There is still ill-defined opacity in the left lower lobe which may be due to atelectasis or pneumonia. This is worse than on 09/28/2011. IMPRESSION: Left lower lobe atelectasis. Electronically signed by Cornelius Moseley 09/30/2019 2:19 PM
[2019-09-30] MEDS: PRAVACHOL PO SCH (20:45)
[2019-09-30] MEDS: SODIUM CHLORIDE 0.9% INJ SCH (23:31)
[2019-09-30] MEDS: PROTONIX IV SCH (23:31)
[2019-09-30] MEDS: ZOFRAN IV PRN (23:45)
[2019-10-01] MEDS: MERREM 1 GM in NS 50 ML IV SCH ×2 (00:15→09:17)
[2019-10-01] MEDS: NS 1,000 ML IV SCH (05:41)
[2019-10-01 08:07] LABS: AGAP 10; BUN 11 mg/dL (8-22); CALCIUM 8.1 mg/dL (8.8-10.2); CHLORIDE 100 mmol/L (98-107); COSMO 273; CREATININE 0.7 mg/dL (0.7-1.2); ESTIMATED GFR > 60; GLUCOSE 127 mg/dL (70-104); SODIUM 136 mmol/L (136-145); TCO2 26 mmol/L (25-35)
[2019-10-01] MEDS: ELIQUIS PO SCH (09:18)
[2019-10-01] MEDS: MIRALAX PO SCH (09:18)
[2019-10-01] MEDS: FLOMAX PO SCH (09:18)
[2019-10-01] MEDS: NORVASC PO SCH (09:18)
[2019-10-01 09:57] LABS: BASO# 0.03 X1000 (0.0-0.2); BASO% 0.3 % (0.0-0.8); EOS# 0.34 X1000 (0.0-0.7); EOS% 2.9 % (0.0-10.0); HEMATOCRIT 41.8 % (42.0-52.0); IMM GRAN# 0.11 X1000 (0.0-0.04); IMM GRAN% 0.9 % (0.0-0.5); LYMPH% 5.9 % (20.5-51.1); MCH 27.1 PG (27-31); MCHC 33.5 g/dL (33-37); MONO# 0.88 X1000 (0.11-0.59); MONO% 7.5 % (1.7-9.3); MPV 10.1 FL (7.4-10.4); NEUT# 9.72 X1000 (1.4-6.5); NEUT% 82.5 % (42.2-75.2); PLT 291 X1000 (130-400); RBC 5.16 XMIL (4.7-6.1); RDW 15.4 % (11.5-14.5); WBC 11.78 X1000 (4.8-10.8)
[2019-10-01] MEDS: ZOFRAN IV PRN (10:43)
[2019-10-01 12:43] VITALS: BP 135/78
--- NOTE | 2019-10-01 20:09 | DISCHARGE SUMMARY ---
ADMISSION DATE: 09/24/2019 DISCHARGE DATE: 10/01/2019 ADMISSION DIAGNOSES: 1. Acute pancreatitis. 2. Atrial fibrillation. 3. Hypertension. DISCHARGE DIAGNOSES: 1. Acute pancreatitis. 2. Left lower lobe pneumonia. 3. Volume overload. 4. Atrial fibrillation, rate controlled. 5. Hypertension. 6. BPH. CONSULTATIONS: None. SURGERIES AND PROCEDURES: None. HOSPITAL COURSE: Mr. Asad Castellano is a 79-year-old male with a medical history of hypertension, atrial fibrillation, came in with complaints of abdominal pain into the epigastric region along with some vomiting. Denies alcohol use. There is no history of gallstones. Had a CT which showed acute pancreatitis. The lipase is greater than 3000. The amylase is 4709. He had a lipid panel that was drawn in June, which was completely normal, and so he was admitted for medical management by keeping him NPO, giving him IV fluids and giving him antiemetics and pain medication. He is getting too many fluids. He had some fluid volume overload at one point. Also developed some pneumonia. He had developed some leukocytosis and meropenem was ordered and abdominal x-ray which showed constipation and MiraLAX was added. By the time the 28 of September rolled around, he was advanced from clear to a GI soft diet. With the volume overload, he received IV Lasix and chest x-ray was performed the next day, which showed that he has a left lower lobe pneumonia, but he had already been started on IV antibiotics because it was suspected that it was the pancreas instead a few days earlier. Pain was much more controlled. He was given antibiotics for the pneumonia. Overall he was improved well enough for discharge home. DISCHARGE VITAL SIGNS: Temperature 97.8, heart rate 85, respiratory rate 18, blood pressure 135/78, O2 saturation 100% on room air. LAB DATA: White blood cells 11,000, hemoglobin 14, hematocrit 41, platelet count 291,000. Sodium 136, potassium 4.0, BUN 11, creatinine 0.7 glucose 127, calcium 8.1. Urinalysis negative. Blood cultures negative. PERTINENT IMAGING: Abdominal and pelvic CT on the , significant acute pancreatitis, no obstructions. Abdominal ultrasound on the , negative exam. Abdominal x-ray on the , constipation. Chest x-ray on the showed a left lower lobe pneumonia and a repeat chest x-ray a few hours later just showed they had turned into atelectasis but mildly still in pneumonia. EKG on the , sinus bradycardia, first-degree AV block rate was 54. EKG on the , sinus rhythm, first-degree AV block, rate 97, QTc 495. DISCHARGE MEDICATIONS: 1. Zofran 4 mg p.o. q. 4 hours p.r.n. 2. Norvasc 5 mg p.o. twice daily. 3. [place] 7.5 one tablet p.o. every 4 hours p.r.n. 4. MiraLAX 17 g p.o. twice daily. 5. Flomax 0.4 mg p.o. twice daily. 6. Augmentin 875 mg p.o. every 12 hours for 7 days. 7. Prilosec 20 mg p.o. daily. 8. Pravastatin 40 mg p.o. daily. 9. Potassium chloride 20 mEq p.o. daily. 10. Eliquis 5 mg p.o. twice daily. 11. Diclofenac sodium one topical application t.i.d. DISCHARGE DIET: Heart healthy, GI soft with Ensure. DISCHARGE ACTIVITY: As tolerated. PHYSICIAN FOLLOWUP: Dr. Radha Morgan. DISCHARGE INSTRUCTIONS: If your condition changes, contact physician and/or return to the emergency department. Changes may include, but not limited to shortness of breath, increased fatigue, excessive bleeding, unexplained weight loss or gain, unmanageable pain, signs or symptoms of infection. Notify MD for fever of 101 or above, shortness of breath, chest pain, uncontrolled pain or nausea, worsening of symptoms or concerns. DISCHARGE DISPOSITION: Home. Dictated by BONIFACIO Lockhart for Dm Miller MD Addendum: Patient seen and examined by myself. Agree with BONIFACIO note. It reflects my assessment and plan. Patient is being discharged from hospital in stable condition. Will be sen by PCP in a week. cc: BONIFACIO Lockhart MD [facility] HEALTHDanilo
== END 2019-10-01 16:21 | disposition home or self-care (01) | DRG 871 ==
LOC: ED 19:58 → 4N 23:15 → SUATTDRO 23:15
PROVIDERS: ATTEND Internal Medicine